=== PATIENT | male | born 1980 | race Hispanic/Latino ===

== ENCOUNTER → 2019-06-29 | Outpatient (CLI) | payer OTHER ==
--- NOTE | 2019-06-29 09:35 | REP ---
Right shoulder three views: There are no comparisons. There is no fracture or dislocation. Mineralization is normal. There are no calcifications or foreign bodies. The inferior cortex of the distal clavicle projects slightly inferior to the acromion inferior cortex at the AC joint, likely a congenital variation. This may predispose this patient to impingement. Impression: The distal clavicle is slightly inferior to the acromion at the AC joint. This may predispose to impingement. Otherwise, negative right shoulder. Electronically Signed by Tyrone Medrano MD 06/29/2019 09:26 A
== END ==
LOC: M RAD 08:44
PROVIDERS: ATTEND Surgery
DX: M25.511 Pain in right shoulder (principal)